=== PATIENT | female | born 1935 | race Caucasian/White ===

== ENCOUNTER → 2018-01-21 | Outpatient (CLI) | payer OTHER ==
[~2018-01-21] MED LIST: ANTIVERT25 MG PO; ASPIR-LOW81 MG PO; ASPIRIN E.C.81 M1 PO; ASPIRIN81 M2 PO; BENTYL20 MG PO; BONIVA150 MG PO; CENTRUM CARD1 TABLET PO; COLACE100 MG PO; Calcium/Magnesiun/Zi PO; Ceftin PO; Colace PO; DIAZEPAM5 MG PO; ENDOCET 5-3251 EACH PO; FERGON324 MG PO; FISH OIL300 MG PO; FUROSEMIDE20 MG PO; Fish Oil PO; IMDUR60 MG PO; IMODIUM MS REL1 EACH PO; IRON; ISOSORBIDE MONO30 MG PO; LASIX40 MG PO; LEXAPRO10 MG PO; LEXAPRO5 MG PO; LISINOPRIL40 MG PO; LUTEIN20 MG PO; Lasix PO; Levaquin PO; Lutein PO; MIRAPEX0.5 MG PO; MIRAPEX1 MG PO; Mirapex PO; PAIN RELIEF650 MG PO; PLAVIX75 MG PO; PRAMIPEXOLE DI1.5 M1 PO; PRAVACHOL20 MG PO; RANITIDINE HCL150 M1 PO; STOOL SOFTENER; TOPROL XL50 MG PO; VALIUM2 MG PO; VITAMIN C500 M1 PO; ZESTRIL,PRINIVI40 M1 PO; ZETIA10 MG PO; ZOFRAN ODT4 MG PO; Zantac PO
== END | disposition home or self-care (01) ==
LOC: RES 08:49
DX: J98.4 Other disorders of lung (principal); J98.9 Respiratory disorder, unspecified
CPT/HCPCS: 94010; 94726; 94729